=== PATIENT | female | born 1965 | race Caucasian/White ===

== ENCOUNTER 2016-10-20 09:24 | Emergency (ER) | payer SELFPAY ==
[2016-10-20] MEDS ORDERED: ONDANSETRON 4 MG/2 ML VIAL IVP ONE (09:41)
[2016-10-20] MEDS ORDERED: NS 1,000 ML IV ONE (09:41)
[2016-10-20] MEDS ORDERED: KETOROLAC 30 MG/1 ML SDV IVP ONE (09:42)
[2016-10-20] MEDS ORDERED: LORazepam 2 MG/ML INJ IVP ONE (09:42)
--- NOTE | 2016-10-20 09:43 | EDPHY ---
H & P Stated Complaint: r sided cp n/v since monday/daily thc - Personal History LMP (Females 10-55): Post Menopausal Current Tetanus/Diphtheria Vaccine: Yes - Medical/Surgical History Hx Asthma: No Hx Chronic Respiratory Disease: No Hx Diabetes: No Hx Cardiac Disease: No Hx Renal Disease: No Hx Cirrhosis: No Hx Alcoholism: No Hx HIV/AIDS: No Hx Splenectomy or Spleen Trauma: No Other PMH: denies - Social History Smoking Status: Never smoked Time Seen by Provider: 10/20/16 09:31 HPI/ROS: CHIEF COMPLAINT: Right-sided chest pain x2 days, nausea since last evening HISTORY OF PRESENT ILLNESS: 50-year-old female generally healthy complaining of 2-3 days right-sided chest pain radiating to her right scapula. Pain is described as an area pleuritic and also reproducible with palpation range of motion. She works as a route delivery service driver for [employer] she regularly performs heavy lifting. She denies trauma or fall. She also developed nausea vomiting since last evening with no abdominal pain. No dizziness. No syncope or near syncope. No dyspnea. No history of mobilization, no history of malignancy, no history of thromboembolic disorder. PRIMARY CARE PROVIDER:no primary care provider REVIEW OF SYSTEMS: A ten point review of systems was performed and is negative with the exception of the items mentioned in the HPI PAST MEDICAL & SURGICAL HISTORY: No pertinent medical or surgical history SOCIAL HISTORY: Daily marijuana smoking. No cocaine use. No tobacco use. FAMILY HISTORY: patient's brother history of DVT, on chronic Coumadin therapy, no further information per the patient. Patient familiar with her father's medical history. Patient's mother age 31 during a cardiac valve replacement surgery. PHYSICAL EXAM (Prior to examination, patient consented to physical exam, hands were washed and my usual and customary physical exam procedures followed) 1) GENERAL: Well-developed, well-nourished, alert and oriented. Appears anxious. 2) HEAD: Normocephalic, atraumatic 3) HEENT: Pupils equal, round, reactive to light bilaterally. Sclera anicteric. Nasopharynx, oropharynx, clear, no lesions. Dry mucous membrane 4) NECK: Full range of motion, no meningeal signs. No bruit 5) LUNGS: Clear auscultation bilaterally, no wheezes, no rhonchi, no retractions. 6) HEART: Regular rate and rhythm, no murmur, no heave, no gallop. Right chest wall tender to palpation mid axillary line approximately rib 5 With no visible or palpable abnormality beyond pain 7) ABDOMEN: No guarding, no rebound, no focal tenderness, negative McBurney's, negative Mackay's, negative Rovsing's, negative peritoneal sign, 8) MUSCULOSKELETAL: Moving all extremities, no focal areas of tenderness, no obvious trauma. No peripheral edema or discoloration. Negative Homans no palpable cord 9) BACK: No CVA tenderness, no midline vertebral tenderness, no fluctuance, no step-off, no obvious trauma, no visual or palpable abnormality. 10) SKIN: No rash, no petechiae. 11) Psychiatric: Patient is oriented X 3, there is no agitation. DIFFERENTIAL DIAGNOSIS: [In no particular order, including but not limited to myocardial ischemia, pulmonary embolus, chest wall pain, pleural inflammation and pulmonary infectious causes. (Cheryle Mccallum) Constitutional: Initial Vital Signs Temperature (C) 36.5 C 10/20/16 09:28 Heart Rate 68 10/20/16 09:28 Respiratory Rate 18 10/20/16 09:28 Blood Pressure 132/84 H 10/20/16 09:28 O2 Sat (%) 96 10/20/16 09:28 O2 Delivery Mode Room Air Allergies/Adverse Reactions: muscle relaxers Allergy (Uncoded 10/20/16 09:27) Home Medications: Medication Instructions Recorded Ibuprofen [Motrin (*)] 600 mg PO Q6 #15 tab 10/20/16 oxyCODONE/APAP 5/325 [Percocet 1 tab PO Q6 #10 tab 10/20/16 5/325] Medical Decision Making - Diagnostics EKG Interpretation: EKG: Complete interpretation has been separately recorded in the [facility] archive. Summary impression: Sinus rhythm (Ramo Chung) ED Course/Re-evaluation: 9:45 a.m.: Discussed case with Dr Chung in ER. 11:18 a.m.: Patient re-evaluated with serial examinations. She is feeling improvement and is asymptomatic at this time. We discussed her laboratory studies including negative troponin and negative D-dimer which I think adequately excluded TN and/or pulmonary embolus in this patient . We discussed possibility of chest wall pain. Plan will be discharged with NSAIDs and analgesia. Given follow-up information. Given usual and customary discharge precautions instructions. (Cheryle Mccallum) Other Provider: PHYSICIAN DOCUMENTATION: The patient was evaluated and managed by the Physician Starch Crab. My co- signature indicates that I have reviewed this chart and I agree with the findings and plan of care as documented. I am the secondary supervising physician. (Ramo Chung) - Data Points Laboratory Results: Laboratory Results 10/20/16 06:45 10/20/16 06:45 Medications Given: Discontinued Medications Sodium Chloride (Ns) 1,000 mls @ 0 mls/hr IV EDNOW ONE; Wide Open PRN Reason: Protocol Stop: 10/20/16 09:42 Last Admin: 10/20/16 09:55 Dose: 1,000 mls Ketorolac Tromethamine (Toradol) 15 mg IVP EDNOW ONE Stop: 10/20/16 09:43 Last Admin: 10/20/16 09:56 Dose: 15 mg Lorazepam (Ativan Injection) 1 mg IVP EDNOW ONE Stop: 10/20/16 09:43 Last Admin: 10/20/16 09:56 Dose: 1 mg Ondansetron HCl (Zofran) 4 mg IVP EDNOW ONE Stop: 10/20/16 09:42 Last Admin: 10/20/16 09:56 Dose: 4 mg Departure - Departure Disposition: Home, Routine, Self-Care Clinical Impression: Chest wall pain Condition: Good Instructions: Chest Wall Pain (ED) Additional Instructions: Seek medical attention if you develop new or worsening chest pain, if you develop new or worsening shortness of breath, or any other symptoms that concern you. Referrals: Austin Quintana MD [Medical Doctor] - 1-2 days without fail Stand Alone Forms: Work Comp Follow Up, Work Excuse Prescriptions: Ibuprofen [Motrin (*)] 600 mg PO Q6 #15 tab oxyCODONE/APAP 5/325 [Percocet 5/325] 1 tab PO Q6 #10 tab
[2016-10-20 09:56] LABS: % IMMATURE GRANULYOCYTES 0.5 % (0.0-1.1); ABSOLUTE IMMATURE GRANULOCYTES 0.03 10^3/uL (0.00-0.10); ADD DIFF? NO; ADD MORPH? NO; ADD SCAN? NO; ATYPICAL LYMPHOCYTE FLAG 0 (0-99); FRAGMENT RBC FLAG 0 (0-99); HEMATOCRIT 45.6 % (38.0-47.0); HEMOGLOBIN 15.1 g/dL (12.6-16.3); LEFT SHIFT FLG 0 (0-99); LIPEMIA HEMOLYSIS FLAG 80 (0-99); MEAN CELL HEMOGLOBIN 31.3 pg (27.9-34.1); MEAN CELL HEMOGLOBIN CONCENTR. 33.1 g/dL (32.4-36.7); MEAN CELL VOLUME 94.6 fL (81.5-99.8); MEAN PLATELET VOLUME 9.9 fL (8.7-11.7); PLATELET CLUMPS FLAG 10 (0-99); PLATELET COUNT 292 10^3/uL (150-400); RED BLOOD CELL COUNT 4.82 10^6/uL (4.18-5.33); RED CELL DISTRIBUTION WIDTH 12.8 % (11.5-15.2)
[2016-10-20 10:15] LABS: ALANINE AMINOTRANSFERASE 36 IU/L (9-52); ALBUMIN 4.7 g/dL (3.5-5.0); ALKALINE PHOSPHATASE 44 IU/L (38-126); ANION GAP 13 mEq/L (8-16); ASPARTATE AMINOTRANSFERASE 31 IU/L (14-46); BILIRUBIN,TOTAL 0.6 mg/dL (0.1-1.4); BILIRUBIN-CONJUGATED 0.2 mg/dL (0.0-0.5); BILIRUBIN-UNCONJUGATED 0.4 mg/dL (0.0-1.1); CALCIUM 9.7 mg/dL (8.5-10.4); CARBON DIOXIDE 27 mEq/l (22-31); CHLORIDE 103 mEq/L (97-110); CREATININE 0.9 mg/dL (0.6-1.0); GLOMERULAR FILTRATION RATE > 60; GLUCOSE 103 mg/dL (70-100); POTASSIUM 4.3 mEq/L (3.5-5.2); SODIUM 143 mEq/L (134-144); TOTAL PROTEIN 7.7 g/dL (6.3-8.2)
--- NOTE | 2016-10-20 10:23 | CPEKG ---
Heart Rate: 54 RR Interval: 1111 P-R Interval: 152 QRSD Interval: 80 QT Interval: 444 QTC Interval: 421 P [place]: 77 QRS [place]: 38 T Wave [place]: 69 EKG Severity - BORDERLINE ECG - EKG Impression: SINUS RHYTHM EKG Impression: LOW VOLTAGE THROUGHOUT Electronically Signed By: Ramo Chung 20-Oct-2016 16:59:45
[2016-10-20 10:26] LABS: TROPONIN I < 0.012 ng/mL (0-0.034)
[2016-10-20 11:57] VITALS: BP 108/70; PULSE 54; RESP 14; TEMP 97.9; O2SAT 92
== END 2016-10-20 11:56 | disposition home or self-care (01) ==
DX: R07.89 Other chest pain (principal); E86.9 Volume depletion, unspecified
CPT/HCPCS: 96374; J1885; J2060; J2405

== ENCOUNTER → 2016-11-17 | Outpatient (CLI) | payer OTHER | LOC: FIMAGING 07:39 | PROVIDERS: ATTEND Physician Assistant | DX: S29.9XXA Unspecified injury of thorax, initial encounter (principal); M25.511 Pain in right shoulder ==